=== PATIENT | female | born 1980 | race Caucasian/White ===

== ENCOUNTER 2017-05-09 07:23 | Emergency (ER) | payer OTHER ==
[~2017-05-09] VITALS: Ht 160 cm; Wt 102.1 kg
--- NOTE | ~2017-05-09 | EKG ---
[place] [address] [facility] [address] [place] [address] ELECTROCARDIOGRAM REPORT Name: VINCE RUGGIERO Room #: PRE [facility].R.#: [id number] Admission: Attend Phys: Discharge: Date of : 84 Report #: [id number] THIS REPORT FOR: //name// [facility] ED Test Date: 2017-05-09 Test Time: 07:29:39 Pat Name: VINCE RUGGIERO Department: Room: Gender: F Manager Money: ÁNGELA : 1980 Requested By: Kalpana Brooks Order Number: [id number] MD: Harshal Durand Measurements Intervals [place] Rate: 84 P: 39 WI: 164 QRS: -2 QRSD: 96 T: 1 QT: 342 QTc: 405 Interpretive Statements Sinus rhythm No significant abnormality No previous ECG available for comparison Electronically Signed On 05-09-2017 8:02:02 CDT by Harshal Durand [email or web address] <ELECTRONICALLY SIGNED> By: Harshal Durand MD, [facility] 05/09/17 0802 0729 0729 Harshal Durand MD, FACC /EPI
[~2017-05-09 07:23] MED LIST: ACETAMINOPHEN325 M1 PO; APAP W/CODEINE1 TA2 PO; APAP500 PO; DERMOPLAST SPRA56 ML; IBUPROFEN 800800 M1 PO; INTEGRA IRON OR; LANOLIN56 GM; PREDNISONE; PRENATAL; TUCKS MEDICATE1 EAC1
[2017-05-09 08:09] LABS: BASOPHILS 1.3 % (0.0-2.0); EOSINOPHILS 2.4 % (0.0-3.0); HEMATOCRIT 40.6 % (37.0-47.0); HEMOGLOBIN 13.8 gm/dL (12.0-15.0); LYMPHOCYTES 34.4 % (24.0-44.0); MCH 26.8 pg (26.0-34.0); MCV 78.9 fL (80.0-100.0); MONOCYTES 8.2 % (1.0-8.0); PLATELET COUNT 207 thou/uL (150-400); POLYS 53.7 % (36.0-66.0); RBC 5.15 mil/uL (4.20-5.00); RDW 12.6 % (10.5-14.5); WBC 7.5 thou/uL (4.0-11.0)
[2017-05-09 08:13] LABS: MANUAL DIFF NO
[2017-05-09 08:14] LABS: ANION GAP 5 mmol/L (7-16); BUN 11 mg/dL (7-18); CALCIUM 9.1 mg/dL (8.5-10.1); CHLORIDE 103 mmol/L (98-107); CO2 29 mmol/L (21-32); CREATININE 0.6 mg/dL (0.6-1.0); GLUCOSE 92 mg/dL (74-106); SODIUM 137 mmol/L (136-145)
[2017-05-09 08:23] LABS: TROPONIN-I < 0.04 ng/mL (<0.04-0.07)
[2017-05-09 09:11] VITALS: BP 110/75
== END 2017-05-09 09:05 | disposition home or self-care (01) ==
LOC: ER 07:23
PROVIDERS: Emergency Medicine
DX: R06.00 Dyspnea, unspecified (principal); R00.2 Palpitations; Z90.49 Acquired absence of other specified parts of digestive tract; Z88.1 Allergy status to other antibiotic agents

== ENCOUNTER 2018-11-26 13:21 | Emergency (ER) | payer OTHER ==
[~2018-11-26] VITALS: Ht 160 cm; Wt 108.9 kg
[2018-11-26 13:49] LABS: URINE BILIRUBIN NEGATIVE (Negative); URINE BLOOD 1+ (Negative); URINE CLARITY CLEAR; URINE COLOR YELLOW; URINE GLUCOSE-RANDOM* NEGATIVE (Negative); URINE KETONES NEGATIVE (Negative); URINE LEUKOCYTES-REFLEX NEGATIVE (Negative); URINE NITRITE-REFLEX NEGATIVE (Negative); URINE PROTEIN (DIPSTICK) NEGATIVE (Negative); URINE SPECIFIC GRAVITY >= 1.030 (1.005-1.035); URINE UROBILINOGEN 0.2 E.U./dl (0.2-1.0)
[2018-11-26 14:02] LABS: BACTERIA-REFLEX 1-9 Few /HPF (None Seen); CASTS None Seen /LPF (None Seen); CRYSTALS None Seen /LPF (None Seen); SQUAMOUS 4-10 Moderate /LPF (0-3); URINE RBC 3-10 Few /HPF (0-2); URINE WBC-REFLEX 0-5 Rare /HPF (0-5)
[2018-11-26] MEDS ORDERED: MOBIC15 MG PO (14:23)
[2018-11-26] MEDS ORDERED: NEURONTIN 300300 M1 PO (14:23)
[2018-11-26] MEDS ORDERED: METFORMIN HCL500 MG PO (14:24)
[2018-11-26] MEDS ORDERED: ZOLOFT50 MG PO (14:24)
[2018-11-26] MEDS ORDERED: ZYRTEC10 M4 PO (14:25)
[2018-11-26] MEDS ORDERED: LOMAIRA8 MG PO (14:25)
[2018-11-26 14:45] LABS: ABSOLUTE NEUTROPHILS 5.4 thou/uL (1.4-8.2); BASOPHILS 1.3 % (0.0-2.0); EOSINOPHILS 2.3 % (0.0-3.0); HEMATOCRIT 39.1 % (37.0-47.0); HEMOGLOBIN 13.3 gm/dL (12.0-15.0); MCH 26.9 pg (26.0-34.0); MCV 79.1 fL (80.0-100.0); MONOCYTES 5.4 % (1.0-8.0); RBC 4.94 mil/uL (4.20-5.00); RDW 12.4 % (10.5-14.5); WBC 8.4 thou/uL (4.0-11.0)
[2018-11-26 14:52] LABS: CALCIUM 9.8 mg/dL (8.5-10.1); CREATININE 0.7 mg/dL (0.6-1.0); POTASSIUM 3.6 mmol/L (3.5-5.1)
[2018-11-26 14:58] LABS: TOTAL BILIRUBIN 0.3 mg/dL (<0.1-1.0); TOTAL PROTEIN 7.7 g/dL (6.4-8.2)
[2018-11-26 15:07] LABS: LARGE PLATELETS FEW; PLATELET COUNT 219 thou/uL (150-400); PLATELET ESTIMATE NORMAL
[2018-11-26] MEDS ORDERED: TRAMADOL 50 MG50 MG PO (15:25)
[2018-11-26] MEDS ORDERED: NAPROSYN500 MG PO (15:25)
[2018-11-26 15:50] VITALS: BP 127/63
== END 2018-11-26 15:52 | disposition home or self-care (01) ==
LOC: ER 13:21
PROVIDERS: Emergency Medicine
DX: R31.9 Hematuria, unspecified (principal); M54.5 Low back pain; R10.9 Unspecified abdominal pain; G43.909 Migraine, unspecified, not intractable, without status migrainosus; Z90.49 Acquired absence of other specified parts of digestive tract; Z88.6 Allergy status to analgesic agent; Z88.5 Allergy status to narcotic agent